=== PATIENT | male | born 1990 | race Caucasian/White ===

== ENCOUNTER 2019-01-13 21:43 | Emergency (ER) | payer OTHER ==
[~2019-01-13] VITALS: Ht 154.9 cm; Wt 75.8 kg
[2019-01-13] MEDS ORDERED: VENL37.5 PO (22:10)
[2019-01-13] MEDS ORDERED: LEVSOD150 PO (22:10)
[2019-01-13] MEDS ORDERED: IBUP600 PO (23:14)
== END 2019-01-13 22:30 | disposition home or self-care (01) ==
LOC: ER 21:43
DX: M25.562 Pain in left knee (principal); R60.0 Localized edema; I83.92 Asymptomatic varicose veins of left lower extremity; Z79.899 Other long term (current) drug therapy
CPT/HCPCS: 93971; 99283-25

== ENCOUNTER → 2020-03-04 | Outpatient (CLI) | payer OTHER ==
[~2020-03-04] MED LIST: IBUP600 PO; LEVSOD150 PO; VENL37.5 PO
[2020-03-04 16:04] LABS: BASOPHILS ABSOLUTE AUTO 0.07 K/mm3 (0.00-0.23); BASOPHILS PERCENT AUTO 1 % (0-2); EOSINOPHILS ABSOLUTE AUTO 0.05 K/mm3 (0.00-0.68); EOSINOPHILS PERCENT AUTO 1 % (0-6); Hematocrit 49.7 % (37.0-53.0); Hemoglobin 17.1 g/dL (13.5-17.5); IMMATURE GRAN ABSOLUTE AUTO 0.01 K/mm3 (0.00-0.10); IMMATURE GRAN PERCENT AUTO 0 % (0-1); LYMPHOCYTES ABSOLUTE AUTO 1.24 K/mm3 (0.84-5.20); LYMPHOCYTES PERCENT AUTO 23 % (21-46); MONOCYTES ABSOLUTE AUTO 0.51 K/mm3 (0.16-1.47); MONOCYTES PERCENT AUTO 10 % (4-13); Mean Corpuscular HGB 32.2 pg (26.0-34.0); Mean Corpuscular HGB Conc 34.4 g/dL (31.5-36.5); Mean Corpuscular Volume 94 fL (80-100); Mean Platelet Volume 11.3 fL (9.1-12.4); NEUTROPHILS ABSOLUTE AUTO 3.49 K/mm3 (1.96-9.15); NEUTROPHILS PERCENT AUTO 65 % (41-73); Platelet Count 159 K/mm3 (150-400); RDW Standard Deviation 44.3 fL (35.1-46.3); Red Blood Cell Count 5.31 M/mm3 (4.30-5.90); White Blood Cell Count 5.37 K/mm3 (4.00-11.30)
[2020-03-04 16:46] LABS: Alanine Aminotransfer (ALT/SGP 19 U/L (12-78); Albumin, Blood 3.4 g/dL (3.4-5.0); Albumin/Globulin Ratio 0.8 (0.8-1.8); Alk Phos 90 U/L (50-136); Anion Gap 4 mmol/L (6-16); Aspartate Aminotrans (AST/SGOT 15 U/L (12-37); Bilirubin, Total 0.5 mg/dL (0.1-1.0); Blood Urea Nitrogen 16 mg/dL (8-24); Bun/Creatinine Ratio 17.4 (12.0-20.0); CO2, Blood 28 mmol/L (21-32); Calcium, Blood 9.1 mg/dL (8.5-10.1); Chloride, Blood 106 mmol/L (98-108); Creatinine, Blood 0.92 mg/dL (0.60-1.20); Glomerular Filtration Rate >60 (60-); Glucose, Blood 80 mg/dL (70-99); Sodium, Blood 138 mmol/L (136-145); Thyroid Stimulating Hormone 0.034 uIU/mL (0.360-4.800); Total Protein, Blood 7.4 g/dL (6.4-8.2)
== END | disposition home or self-care (01) ==
LOC: LAB 15:14 → LAB SHORT 15:14
PROVIDERS: Family Medicine
DX: E03.9 Hypothyroidism, unspecified (principal); R63.4 Abnormal weight loss; R53.83 Other fatigue
CPT/HCPCS: 80053; 82306; 82607; 82746; 84443; 85025

== ENCOUNTER → 2020-11-04 | Outpatient (CLI) | payer OTHER ==
[2020-11-04 19:12] LABS: C-REACTIVE PROTEIN, EXT RANGE <0.290 mg/dL (0.000-0.300)
[2020-11-12 12:06] LABS: Result SEE LABOUT RESULTS
[2020-11-16 07:11] LABS: ANTI-GLIAL NUCLEAR AB TYPE 1 Negative titer (<1:240); PURKINJE CELL CYTOP.AB TYPE TR Negative titer (<1:240)
== END | disposition home or self-care (01) ==
LOC: LAB 17:40 → LAB SHORT 17:40
PROVIDERS: Family Medicine
DX: E03.9 Hypothyroidism, unspecified (principal); F03.90 Unspecified dementia, unspecified severity, without behavioral disturbance, psychotic disturbance, mood disturbance, and anxiety; Q90.9 Down syndrome, unspecified; R41.82 Altered mental status, unspecified
CPT/HCPCS: 83516; 83519; 83520; 84443; 85651; 86140; 86255; 86256; 86341

== ENCOUNTER → 2020-12-29 | Outpatient (CLI) | payer OTHER | END | disposition home or self-care (01) | LOC: LAB HH 12:45 → LAB SHORT 12:45 | DX: E03.9 Hypothyroidism, unspecified (principal); R41.82 Altered mental status, unspecified; R46.89 Other symptoms and signs involving appearance and behavior | CPT/HCPCS: 84443; 86060 ==

== ENCOUNTER 2022-03-24 09:14 | Emergency (ER) | payer OTHER ==
[~2022-03-24] VITALS: Ht 154.9 cm; Wt 68.0 kg
[~2022-03-24 09:14] MED LIST changes: +ESCI20 PO; +EUTHYROX25 MC1 PO
[2022-03-24 10:47] LABS: Albumin, Blood 3.2 g/dL (3.4-5.0); Albumin/Globulin Ratio 0.7 (0.8-1.8); Bilirubin, Total 0.9 mg/dL (0.1-1.0); Bun/Creatinine Ratio 13.5 (12.0-20.0); Calcium, Blood 9.1 mg/dL (8.5-10.1); Creatinine, Blood 1.04 mg/dL (0.60-1.20); Globulin, Blood 4.3 g/dL (2.2-4.0); Potassium, Blood 4.1 mmol/L (3.5-5.5); Total Protein, Blood 7.5 g/dL (6.4-8.2)
[2022-03-24 11:15] LABS: BASOPHILS ABSOLUTE AUTO 0.04 K/mm3 (0.00-0.23); BASOPHILS PERCENT AUTO 1 % (0-2); EOSINOPHILS ABSOLUTE AUTO 0.02 K/mm3 (0.00-0.68); EOSINOPHILS PERCENT AUTO 0 % (0-6); Hematocrit 43.8 % (37.0-53.0); Hemoglobin 15.1 g/dL (13.5-17.5); IMMATURE GRAN ABSOLUTE AUTO 0.02 K/mm3 (0.00-0.10); IMMATURE GRAN PERCENT AUTO 0 % (0-1); LYMPHOCYTES ABSOLUTE AUTO 1.28 K/mm3 (0.84-5.20); LYMPHOCYTES PERCENT AUTO 25 % (21-46); MONOCYTES ABSOLUTE AUTO 0.66 K/mm3 (0.16-1.47); MONOCYTES PERCENT AUTO 13 % (4-13); Mean Corpuscular HGB 32.1 pg (26.0-34.0); Mean Corpuscular HGB Conc 34.5 g/dL (31.5-36.5); Mean Corpuscular Volume 93 fL (80-100); Mean Platelet Volume 9.5 fL (9.1-12.4); NEUTROPHILS ABSOLUTE AUTO 3.15 K/mm3 (1.96-9.15); NEUTROPHILS PERCENT AUTO 61 % (41-73); Platelet Count 270 K/mm3 (150-400); RDW Coefficient Variation 13.2 % (11.7-14.2); RDW Standard Deviation 45.4 fL (35.1-46.3); White Blood Cell Count 5.17 K/mm3 (4.00-11.30)
== END 2022-03-24 15:22 | disposition home or self-care (01) ==
LOC: ER 09:14
PROVIDERS: Emergency Medicine
DX: G93.49 Other encephalopathy (principal)
CPT/HCPCS: 36415; 80053; 85025; 96374; 99281-25; J1569

== ENCOUNTER 2022-04-24 11:12 | Emergency (ER) | payer OTHER ==
[~2022-04-24] VITALS: Ht 167.6 cm; Wt 54.4 kg
[~2022-04-24 11:12] MED LIST changes: +ESCI10 PO; -ESCI20 PO; +EUTHYROX125 MC1 PO; -EUTHYROX25 MC1 PO
== END 2022-04-24 18:10 | disposition home or self-care (01) ==
LOC: ER 11:12
DX: G04.90 Encephalitis and encephalomyelitis, unspecified (principal)
CPT/HCPCS: 96365; 96366; 99282-25; J1569

== ENCOUNTER 2022-05-25 01:43 | Day surgery (SDC) | payer OTHER ==
[~2022-05-25] VITALS: Wt 70.1 kg
[2022-05-25] MEDS ORDERED: GAMMAPLEX 20 G200 ML IV (14:01)
== END 2022-05-25 16:48 | disposition home or self-care (01) ==
LOC: ATC 01:43
DX: G04.81 Other encephalitis and encephalomyelitis (principal); Q90.9 Down syndrome, unspecified; L70.9 Acne, unspecified; L73.2 Hidradenitis suppurativa; E03.9 Hypothyroidism, unspecified
CPT/HCPCS: 96365; 96366; J1569

== ENCOUNTER 2022-07-28 03:28 | Day surgery (SDC) | payer OTHER ==
[~2022-07-28 03:28] MED LIST changes: +GAMMAPLEX 20 G200 ML IV
== END 2022-07-28 16:33 | disposition home or self-care (01) ==
LOC: ATC 03:28
DX: G04.81 Other encephalitis and encephalomyelitis (principal); E03.9 Hypothyroidism, unspecified; Z79.899 Other long term (current) drug therapy
CPT/HCPCS: J1568

== ENCOUNTER 2022-09-01 00:16 | Day surgery (SDC) | payer OTHER | END 2022-09-01 16:55 | disposition home or self-care (01) | LOC: ATC 00:16 | DX: G04.81 Other encephalitis and encephalomyelitis (principal); G93.49 Other encephalopathy; E03.9 Hypothyroidism, unspecified; K90.0 Celiac disease; Q90.9 Down syndrome, unspecified | CPT/HCPCS: 96365; 96366; J1568 ==

== ENCOUNTER 2022-09-29 01:02 | Day surgery (SDC) | payer OTHER ==
[~2022-09-29] VITALS: Wt 77.0 kg
== END 2022-09-29 16:41 | disposition home or self-care (01) ==
LOC: ATC 01:02
DX: G93.49 Other encephalopathy (principal)
CPT/HCPCS: J1568

== ENCOUNTER 2022-10-27 02:20 | Day surgery (SDC) | payer OTHER ==
[~2022-10-27] VITALS: Wt 77.8 kg
== END 2022-10-27 16:45 | disposition home or self-care (01) ==
LOC: ATC 02:20
DX: G04.81 Other encephalitis and encephalomyelitis (principal); Q90.9 Down syndrome, unspecified; L70.9 Acne, unspecified; L73.2 Hidradenitis suppurativa
CPT/HCPCS: J1568

== ENCOUNTER 2022-12-01 00:18 | Day surgery (SDC) | payer OTHER | END 2022-12-01 17:08 | disposition home or self-care (01) | LOC: ATC 00:18 | DX: G04.81 Other encephalitis and encephalomyelitis (principal); Q90.9 Down syndrome, unspecified; E89.0 Postprocedural hypothyroidism | CPT/HCPCS: J1569 ==

== ENCOUNTER 2022-12-29 01:49 | Day surgery (SDC) | payer OTHER ==
[~2022-12-29 01:49] MED LIST changes: -EUTHYROX125 MC1 PO; +EUTHYROX150 MC1 PO
== END 2022-12-29 16:30 | disposition home or self-care (01) ==
LOC: ATC 01:49
DX: G04.81 Other encephalitis and encephalomyelitis (principal); Q90.9 Down syndrome, unspecified; F33.0 Major depressive disorder, recurrent, mild; E89.0 Postprocedural hypothyroidism; K90.0 Celiac disease
CPT/HCPCS: 96365; 96366; J1569

== ENCOUNTER → 2023-01-19 | Outpatient (CLI) | payer OTHER ==
[2023-01-21 12:17] LABS: Stool Occult Blood Guaiac 1 Neg (Neg)
== END | disposition home or self-care (01) ==
LOC: LAB 18:30 → LAB SHORT 18:30
PROVIDERS: Family Medicine
DX: K90.0 Celiac disease (principal); D50.9 Iron deficiency anemia, unspecified
CPT/HCPCS: 82272

== ENCOUNTER 2023-08-21 05:52 | Day surgery (SDC) | payer OTHER ==
[~2023-08-21 05:52] MED LIST changes: +BACTRIM DS TAB1 EAC2 PO; +MINO50; +TOCO1000 PO
[2023-08-21 13:55] VITALS: BP 99/60
[2023-08-21 14:34] VITALS: BP 110/82
[2023-08-21 14:47] VITALS: BP 101/63
[2023-08-21 14:51] LABS: BASOPHILS ABSOLUTE AUTO 0.05 K/mm3 (0.00-0.23); BASOPHILS PERCENT AUTO 1 % (0-2); EOSINOPHILS ABSOLUTE AUTO 0.03 K/mm3 (0.00-0.68); EOSINOPHILS PERCENT AUTO 1 % (0-6); Hematocrit 44.9 % (37.0-53.0); Hemoglobin 15.9 g/dL (13.5-17.5); IMMATURE GRAN ABSOLUTE AUTO 0.01 K/mm3 (0.00-0.10); IMMATURE GRAN PERCENT AUTO 0 % (0-1); LYMPHOCYTES ABSOLUTE AUTO 0.91 K/mm3 (0.84-5.20); LYMPHOCYTES PERCENT AUTO 19 % (21-46); MONOCYTES ABSOLUTE AUTO 0.54 K/mm3 (0.16-1.47); MONOCYTES PERCENT AUTO 11 % (4-13); Mean Corpuscular HGB 32.4 pg (26.0-34.0); Mean Corpuscular HGB Conc 35.4 g/dL (31.5-36.5); Mean Corpuscular Volume 91 fL (80-100); Mean Platelet Volume 9.7 fL (9.1-12.4); NEUTROPHILS ABSOLUTE AUTO 3.39 K/mm3 (1.96-9.15); NEUTROPHILS PERCENT AUTO 69 % (41-73); Platelet Count 252 K/mm3 (150-400); RDW Coefficient Variation 13.2 % (11.7-14.2); RDW Standard Deviation 44.1 fL (35.1-46.3); Red Blood Cell Count 4.91 M/mm3 (4.30-5.90); White Blood Cell Count 4.93 K/mm3 (4.00-11.30)
[2023-08-21 15:08] VITALS: BP 98/61
[2023-08-21 15:59] LABS: Albumin, Blood 3.3 g/dL (3.4-5.0); Albumin/Globulin Ratio 0.9 (0.8-1.8); Bilirubin, Total 0.4 mg/dL (0.1-1.0); Bun/Creatinine Ratio 21.7 (12.0-20.0); Calcium, Blood 8.8 mg/dL (8.5-10.1); Creatinine, Blood 1.06 mg/dL (0.60-1.20); Globulin, Blood 3.7 g/dL (2.2-4.0); Potassium, Blood 4.1 mmol/L (3.5-5.5); Thyroid Stimulating Hormone 0.067 uIU/mL (0.360-4.800)
== END 2023-08-21 22:52 | disposition home or self-care (01) ==
LOC: ATC 05:52
PROVIDERS: Family Medicine
DX: G04.81 Other encephalitis and encephalomyelitis (principal); K90.0 Celiac disease; E03.9 Hypothyroidism, unspecified; Q90.9 Down syndrome, unspecified
CPT/HCPCS: 80053; 82607; 82652; 82746; 83036; 84443; 85025; 96365; 96366; J1459

== ENCOUNTER 2023-08-22 01:48 | Day surgery (SDC) | payer OTHER ==
[2023-08-22 13:44] VITALS: BP 108/88
[2023-08-22 14:27] VITALS: BP 115/66
[2023-08-22 14:46] VITALS: BP 115/74
== END 2023-08-22 16:53 | disposition home or self-care (01) ==
LOC: ATC 01:48
DX: G04.81 Other encephalitis and encephalomyelitis (principal); E03.9 Hypothyroidism, unspecified; Z79.890 Hormone replacement therapy; Z79.899 Other long term (current) drug therapy
CPT/HCPCS: 96365; 96366; J1459

== ENCOUNTER 2023-09-28 03:58 | Day surgery (SDC) | payer OTHER ==
[2023-09-28] VITALS (8 sets, daily range): BP systolic 93–128; BP diastolic 66–84
== END 2023-09-28 17:21 | disposition home or self-care (01) ==
LOC: ATC 03:58
DX: G93.49 Other encephalopathy (principal); E03.9 Hypothyroidism, unspecified
CPT/HCPCS: 84443; 96365; 96366; J1459

== ENCOUNTER 2023-10-30 03:45 | Day surgery (SDC) | payer OTHER ==
[2023-10-30 13:31] VITALS: BP 112/63
[2023-10-30] MEDS ORDERED: DAILY-VITE1 EAC1 PO (13:43)
[2023-10-30 14:12] VITALS: BP 108/63
[2023-10-30 14:30] VITALS: BP 114/70
[2023-10-30 14:51] VITALS: BP 105/61
[2023-10-30 15:04] VITALS: BP 97/85
[2023-10-30 15:37] VITALS: BP 100/83
== END 2023-10-30 16:47 | disposition home or self-care (01) ==
LOC: ATC 03:45
DX: G04.81 Other encephalitis and encephalomyelitis (principal)
CPT/HCPCS: 96365; 96366; 96415; J1459

== ENCOUNTER 2023-11-29 00:58 | Day surgery (SDC) | payer OTHER ==
[~2023-11-29 00:58] MED LIST changes: +DAILY-VITE1 EAC1 PO
[2023-11-29] MEDS ORDERED: IMMUN GLOB G(IGG)/PRO/IGA 0-50 100 ML IV SCH (06:00)
[2023-11-29 13:35] VITALS: BP 94/53
[2023-11-29 14:18] VITALS: BP 89/62
[2023-11-29 14:37] VITALS: BP 91/63
[2023-11-29 14:52] VITALS: BP 94/60
== END 2023-11-29 16:46 | disposition home or self-care (01) ==
LOC: ATC 00:58
DX: G04.81 Other encephalitis and encephalomyelitis (principal); E89.0 Postprocedural hypothyroidism; Z79.890 Hormone replacement therapy
CPT/HCPCS: 96365; 96366; J1459

== ENCOUNTER 2024-04-24 02:47 | Day surgery (SDC) | payer OTHER ==
[2024-04-24] MEDS ORDERED: IMMUN GLOB G(IGG)/PRO/IGA 0-50 100 ML IV SCH (06:00)
[2024-04-24 14:00] VITALS: BP 105/72
[2024-04-24 14:38] VITALS: BP 114/73
[2024-04-24 14:53] VITALS: BP 120/78
[2024-04-24 15:34] VITALS: BP 129/96
== END 2024-04-24 22:53 | disposition home or self-care (01) ==
LOC: ATC 02:47
DX: G04.81 Other encephalitis and encephalomyelitis (principal); E03.9 Hypothyroidism, unspecified; Z79.899 Other long term (current) drug therapy
CPT/HCPCS: 96365; 96366; J1459

== ENCOUNTER → 2024-06-18 | Outpatient (CLI) | payer OTHER ==
[~2024-06-18] MED LIST changes: +FERSU300 PO; +SULTRIDS PO
== END ==
LOC: LAB SHORT 15:17 → LAB 15:17
DX: L72.0 Epidermal cyst (principal)
CPT/HCPCS: 87070; 87205

== ENCOUNTER 2024-07-25 03:24 | Day surgery (SDC) | payer OTHER ==
[~2024-07-25] VITALS: Wt 79.6 kg
[2024-07-25] MEDS ORDERED: IMMUN GLOB G(IGG)/PRO/IGA 0-50 100 ML IV SCH (06:00)
[2024-07-25 13:59] VITALS: BP 110/65
[2024-07-25 14:32] VITALS: BP 108/60
[2024-07-25 14:53] VITALS: BP 105/64
[2024-07-25 15:05] VITALS: BP 102/65
[2024-07-25 15:21] VITALS: BP 107/71
== END 2024-07-25 17:15 | disposition home or self-care (01) ==
LOC: ATC 03:24
DX: G04.81 Other encephalitis and encephalomyelitis (principal); Q90.9 Down syndrome, unspecified; E89.0 Postprocedural hypothyroidism; K90.0 Celiac disease; M23.92 Unspecified internal derangement of left knee
CPT/HCPCS: 96365; J1459

== ENCOUNTER 2024-10-03 06:07 | Day surgery (SDC) | payer OTHER ==
[~2024-10-03 06:07] MED LIST changes: +IMMUN GLOB G(IGG)/PRO/IGA 0-50 100 ML IV SCH
[2024-10-03 13:27] VITALS: BP 111/78
[2024-10-03 14:10] VITALS: BP 124/83
[2024-10-03 14:28] VITALS: BP 113/66
[2024-10-03 14:47] VITALS: BP 113/63
[2024-10-03 15:05] VITALS: BP 107/92
[2024-10-03 15:19] VITALS: BP 106/69
== END 2024-10-03 16:49 | disposition home or self-care (01) ==
LOC: ATC 06:07
DX: G04.81 Other encephalitis and encephalomyelitis (principal); Q90.9 Down syndrome, unspecified; E03.9 Hypothyroidism, unspecified; Z79.899 Other long term (current) drug therapy
CPT/HCPCS: 96365; 96366; J1459

== ENCOUNTER 2024-10-31 03:15 | Day surgery (SDC) | payer OTHER ==
[~2024-10-31 03:15] MED LIST changes: -IMMUN GLOB G(IGG)/PRO/IGA 0-50 100 ML IV SCH
[2024-10-31] MEDS ORDERED: IMMUN GLOB G(IGG)/PRO/IGA 0-50 100 ML IV SCH (06:00)
[2024-10-31 13:55] VITALS: BP 92/66
[2024-10-31 14:45] LABS: BASOPHILS ABSOLUTE AUTO 0.05 K/mm3 (0.00-0.23); BASOPHILS PERCENT AUTO 1 % (0-2); EOSINOPHILS ABSOLUTE AUTO 0.05 K/mm3 (0.00-0.68); EOSINOPHILS PERCENT AUTO 1 % (0-6); Hemoglobin 15.9 g/dL (13.5-17.5); IMMATURE GRAN ABSOLUTE AUTO 0.01 K/mm3 (0.00-0.10); IMMATURE GRAN PERCENT AUTO 0 % (0-1); LYMPHOCYTES ABSOLUTE AUTO 0.89 K/mm3 (0.84-5.20); LYMPHOCYTES PERCENT AUTO 19 % (21-46); MONOCYTES ABSOLUTE AUTO 0.42 K/mm3 (0.16-1.47); MONOCYTES PERCENT AUTO 9 % (4-13); Mean Corpuscular HGB 32.3 pg (26.0-34.0); Mean Corpuscular HGB Conc 34.6 g/dL (31.5-36.5); Mean Corpuscular Volume 93 fL (80-100); Mean Platelet Volume 10.4 fL (9.1-12.4); NEUTROPHILS ABSOLUTE AUTO 3.38 K/mm3 (1.96-9.15); NEUTROPHILS PERCENT AUTO 71 % (41-73); Platelet Count 257 K/mm3 (150-400); RDW Coefficient Variation 14.4 % (11.7-14.2); RDW Standard Deviation 49.3 fL (35.1-46.3); Red Blood Cell Count 4.93 M/mm3 (4.30-5.90)
[2024-10-31 15:06] VITALS: BP 99/69
[2024-10-31 15:13] LABS: Percent Saturation 29.8 % (20.0-50.0); Thyroid Stimulating Hormone 1.16 uIU/mL (0.360-4.800)
[2024-10-31 15:14] LABS: Albumin, Blood 3.3 g/dL (3.4-5.0); Albumin/Globulin Ratio 0.7 (0.8-1.8); Bilirubin, Total 0.7 mg/dL (0.1-1.0); Bun/Creatinine Ratio 26.7 (12.0-20.0); Calcium, Blood 8.8 mg/dL (8.5-10.1); Creatinine, Blood 0.9 mg/dL (0.60-1.20); Globulin, Blood 4.6 g/dL (2.2-4.0); Potassium, Blood 5.6 mmol/L (3.5-5.5); Total Protein, Blood 7.9 g/dL (6.4-8.2)
[2024-10-31 15:22] VITALS: BP 110/81
[2024-10-31 15:36] VITALS: BP 99/70
[2024-10-31 15:54] VITALS: BP 108/64
== END 2024-10-31 17:46 | disposition home or self-care (01) ==
LOC: ATC 03:15
PROVIDERS: Physician Assistant
DX: G04.81 Other encephalitis and encephalomyelitis (principal); Q90.9 Down syndrome, unspecified; M23.92 Unspecified internal derangement of left knee; E03.9 Hypothyroidism, unspecified; Z79.890 Hormone replacement therapy; Z79.899 Other long term (current) drug therapy
CPT/HCPCS: 80053; 82306; 82728; 83540; 83550; 84443; 85025; 96365; 96366; J1459

== ENCOUNTER 2024-12-05 03:41 | Day surgery (SDC) | payer OTHER ==
[2024-12-05] VITALS (7 sets, daily range): BP systolic 92–115; BP diastolic 60–85
[2024-12-05] MEDS ORDERED: IMMUN GLOB G(IGG)/PRO/IGA 0-50 100 ML IV SCH (06:00)
== END 2024-12-05 16:54 | disposition home or self-care (01) ==
LOC: ATC 03:41
DX: G04.81 Other encephalitis and encephalomyelitis (principal); E89.0 Postprocedural hypothyroidism; K90.0 Celiac disease; Z79.899 Other long term (current) drug therapy
CPT/HCPCS: 96365; 96366; J1459

== ENCOUNTER 2025-01-16 00:42 | Day surgery (SDC) | payer OTHER ==
[2025-01-16] MEDS ORDERED: IMMUN GLOB G(IGG)/PRO/IGA 0-50 100 ML IV SCH (06:00)
[2025-01-16 14:14] VITALS: BP 94/65
[2025-01-16 15:04] VITALS: BP 120/70
[2025-01-16 15:18] VITALS: BP 96/70
[2025-01-16 15:29] LABS: Albumin, Blood 3.5 g/dL (3.4-5.0); Albumin/Globulin Ratio 0.9 (0.8-1.8); Bilirubin, Direct 0.2 mg/dL (0.0-0.3); Bilirubin, Indirect 0.5 mg/dL (0.1-0.7); Bilirubin, Total 0.7 mg/dL (0.1-1.0); Total Protein, Blood 7.5 g/dL (6.4-8.2)
[2025-01-16 15:37] VITALS: BP 94/68
[2025-01-16 16:00] VITALS: BP 102/69
== END 2025-01-16 17:46 | disposition home or self-care (01) ==
LOC: ATC 00:42
PROVIDERS: Nurse Practitioner Family
DX: G04.81 Other encephalitis and encephalomyelitis (principal); E89.0 Postprocedural hypothyroidism; Q90.9 Down syndrome, unspecified; K90.0 Celiac disease; Z79.899 Other long term (current) drug therapy
CPT/HCPCS: 80076; 96365; 96366; J1459

== ENCOUNTER 2025-02-16 05:13 | Day surgery (SDC) | payer OTHER ==
[~2025-02-16 05:13] MED LIST changes: +IMMUN GLOB G(IGG)/PRO/IGA 0-50 100 ML IV SCH
[2025-02-16 14:01] VITALS: BP 96/57
[2025-02-16 14:30] VITALS: BP 96/72
[2025-02-16 14:52] VITALS: BP 91/56
[2025-02-16 15:03] VITALS: BP 100/60
[2025-02-16 15:21] VITALS: BP 91/68
[2025-02-16 16:08] LABS: Albumin, Blood 3.4 g/dL (3.4-5.0); Albumin/Globulin Ratio 0.9 (0.8-1.8); Alk Phos 82 U/L (50-136); Anion Gap 9 mmol/L (3-11); Aspartate Aminotrans (AST/SGOT 30 U/L (12-37); Bilirubin, Total 0.7 mg/dL (0.1-1.0); Blood Urea Nitrogen 20 mg/dL (8-24); CHOL/HDL RATIO 2.8; CO2, Blood 28 mmol/L (21-32); Chloride, Blood 104 mmol/L (98-108); Cholesterol 133 mg/dL (50-200); Globulin, Blood 3.9 g/dL (2.2-4.0); Glucose, Blood 75 mg/dL (70-99); HDL Cholesterol 47 mg/dL (>39); LDL/HDL RATIO 1.2; Low Density Lipoprotein Chol 57 mg/dL (0-110); Potassium, Blood 4.1 mmol/L (3.5-5.5); Sodium, Blood 137 mmol/L (136-145); Total Protein, Blood 7.3 g/dL (6.4-8.2); Triglycerides 143 mg/dL (30-140); Very Low Density Lipoprot Chol 28 mg/dL (6-28)
[2025-02-16 16:17] LABS: Alanine Aminotransfer (ALT/SGP 28 U/L (12-78); Bun/Creatinine Ratio 19.6 (12.0-20.0); Creatinine, Blood 1.02 mg/dL (0.60-1.20); Glomerular Filtration Rate 100 (60-); LDL Direct Measurement 81 mg/dL (0-130)
== END 2025-02-16 17:05 | disposition home or self-care (01) ==
LOC: ATC 05:13
PROVIDERS: Nurse Practitioner Family
DX: G04.81 Other encephalitis and encephalomyelitis (principal); K90.0 Celiac disease; E03.9 Hypothyroidism, unspecified; Z79.890 Hormone replacement therapy; Z79.899 Other long term (current) drug therapy
CPT/HCPCS: 80053; 80061; 83721; 96365; 96366; J1459

== ENCOUNTER 2025-03-19 01:37 | Day surgery (SDC) | payer OTHER ==
[~2025-03-19 01:37] MED LIST changes: -IMMUN GLOB G(IGG)/PRO/IGA 0-50 100 ML IV SCH
[2025-03-19] MEDS ORDERED: IMMUN GLOB G(IGG)/PRO/IGA 0-50 100 ML IV SCH (06:00)
[2025-03-19 14:09] VITALS: BP 92/70
[2025-03-19] MEDS ORDERED: ABILIFY MYCITE5 M2 PO (14:23)
[2025-03-19 14:56] VITALS: BP 93/66
[2025-03-19 15:12] VITALS: BP 99/71
[2025-03-19 15:23] VITALS: BP 102/79
== END 2025-03-19 23:38 | disposition home or self-care (01) ==
LOC: ATC 01:37
DX: G04.81 Other encephalitis and encephalomyelitis (principal); E03.9 Hypothyroidism, unspecified; Q90.9 Down syndrome, unspecified; Z79.890 Hormone replacement therapy; Z79.899 Other long term (current) drug therapy
CPT/HCPCS: 96365; 96366; J1459

== ENCOUNTER 2025-04-16 03:42 | Day surgery (SDC) | payer OTHER ==
[~2025-04-16 03:42] MED LIST changes: +ABILIFY MYCITE5 M2 PO
[2025-04-16] MEDS ORDERED: IMMUN GLOB G(IGG)/PRO/IGA 0-50 100 ML IV SCH (06:00)
[2025-04-16 13:01] VITALS: BP 96/72
[2025-04-16 13:33] VITALS: BP 93/78
[2025-04-16 14:17] VITALS: BP 101/64
== END 2025-04-16 16:05 | disposition home or self-care (01) ==
LOC: ATC 03:42
DX: G04.81 Other encephalitis and encephalomyelitis (principal); Q90.9 Down syndrome, unspecified; G47.00 Insomnia, unspecified; L21.9 Seborrheic dermatitis, unspecified; E89.0 Postprocedural hypothyroidism; Z79.890 Hormone replacement therapy; Z79.899 Other long term (current) drug therapy
CPT/HCPCS: 96365; 96366; J1459